=== PATIENT | female | born 1990 | race Two or more races ===

== ENCOUNTER 2019-02-16 12:35 | Emergency (ER) | payer MEDICAID ==
[~2019-02-16] VITALS: Ht 160 cm; Wt 81.6 kg
[2019-02-16 13:04] VITALS: BP 103/71
== END 2019-02-16 14:31 | disposition left against medical advice (07) ==
LOC: ER 12:35
DX: F41.9 Anxiety disorder, unspecified (principal); Z53.21 Procedure and treatment not carried out due to patient leaving prior to being seen by health care provider